=== PATIENT | female | born 1975 | race Caucasian/White ===

== ENCOUNTER → 2024-03-17 10:55 | Outpatient (REF) | payer OTHER, SELFPAY | LOC: WDC 10:55 | PROVIDERS: ATTENDING PHYSICIAN Family Medicine | DX: Z12.31 Encounter for screening mammogram for malignant neoplasm of breast (principal) | CPT/HCPCS: 77063; 77067 ==

== ENCOUNTER → 2024-06-09 06:23 | Day surgery (SDC) | payer OTHER, SELFPAY | LOC: GI 06:23 | PROVIDERS: ATTENDING PHYSICIAN Specialist; FAMILY PHYSICIAN Family Medicine | DX: Z12.11 Encounter for screening for malignant neoplasm of colon (principal); K63.5 Polyp of colon; K62.1 Rectal polyp | CPT/HCPCS: 45385; 45380; 88305 ==

== ENCOUNTER → 2024-08-30 06:40 | Outpatient (REF) | payer OTHER, SELFPAY | LOC: MRI 3T 06:40 | PROVIDERS: ATTENDING PHYSICIAN Family Medicine; FAMILY PHYSICIAN Family Medicine | DX: S83.289A Other tear of lateral meniscus, current injury, unspecified knee, initial encounter (principal) | CPT/HCPCS: 73721 ==

== ENCOUNTER → 2024-09-20 09:03 | Outpatient (REF) | payer OTHER, SELFPAY | LOC: WDC 09:03 | PROVIDERS: ATTENDING PHYSICIAN Student in an Organized Health Care Education/Training Program | DX: N64.4 Mastodynia (principal) | CPT/HCPCS: 76642; 77061; 77065 ==

== ENCOUNTER → 2024-09-29 09:42 | Outpatient (REF) | payer OTHER, SELFPAY | LOC: HWRAD 09:42 | PROVIDERS: ATTENDING PHYSICIAN Student in an Organized Health Care Education/Training Program; FAMILY PHYSICIAN Family Medicine | DX: N91.2 Amenorrhea, unspecified (principal) | CPT/HCPCS: 76830; 76856 ==

== ENCOUNTER 2024-11-16 08:22 | Emergency (ER) | payer OTHER, SELFPAY ==
[2024-11-16 08:23] VITALS: BP 164/81
[2024-11-16 08:35] VITALS: BMI 40.4
--- NOTE | 2024-11-16 08:48 | ED.GENMED ---
History of Present Illness
General
Chief Complaint: Back Pain
Source: patient
Exam Limitations: none
Time Seen by Provider: 11/16/24 08:34
History of Present Illness
History of Present Illness:
49yoF with a history of asthma, migraines, and obesity presenting for evaluation of back pain. Symptoms began 2 days ago with pain throughout her lower abdomen. Pain started to radiate to her hips and lower abdomen about a day later. She reports
significant spasms and is having difficulty sleeping due to her symptoms. Pain is worse with movement. She took Tylenol at symptom onset but has not been taking anything else because she was told to avoid NSAIDs due to an upcoming surgery in 4
days in which she is scheduled to have her breast implants removed. She states she wants to make sure it is nothing serious before her surgery. She is otherwise asymptomatic and denies any fevers, dysuria, bowel/bladder dysfunction, paresthesias,
weakness. No prior history of back problems. No history of IVDU or malignancy.
Past History
Past History
ED Past Medical History: None
ED Past Surgical History: Other (Breast augmentation)
Social History
Tobacco: Non-smoker
Alcohol: None
Drug: None
Living: with family
Phy Exam
Physical Exam
Physical Exam:
Appears uncomfortable due to pain, non-toxic
General Physical Exam
General Presentation: well appearing
General Skin: warm and dry
General Habitus: normal
General Mental: alert
ENT Exam
ENT Exam: normocephalic
Pulmonary Exam
Pulmonary Exam: no respiratory distress
Gastrointestinal Exam
Gastrointestinal Exam: soft, non distended and other (Mild tenderness in suprapubic region. Abdomen soft without rebound or guarding.)
Neurological Exam
Neurological Exam: alert
[place] Coma Scale
Eye Opening: Spontaneous
Verbal Response: Oriented
Motor Response: Obeys Commands
GCS Total Score: 15
Musculoskeletal Exam
Musculoskeletal Exam: other (+Tenderness in the bilateral paraspinal musculature in lumbar region. No midline spinous process tenderness. No step-offs.)
Skin Exam
Skin Exam: normal color and warm/dry
Psychiatric Exam
Psychiatric Exam: normal mood/affect
Course
Orders/Labs/Results
Orders:
Orders
11/16/24 08:47
CT Abd/pel Without Iv Or Oral Urgent
Comment:
Reason For Exam: b/l flank/back pain radiating to lower abdomen
Test Result ONCE
11/16/24 09:06
Complete Blood Count/With Diff Urgent
Comprehensive Metabolic Panel Urgent
HCG, Serum Qualitative Screen Urgent
Urinalysis Reflex To Culture Urgent
Date Specimen was Collected: 11/16/24
Time Specimen was Collected: 08:56
Urine Microscopic Reflex Cult Urgent
Abnormal Lab Results
11/16/24
09:06
RDW 14.6 H %
(11.5-14.5)
MPV 12.1 H fL
(7.4-10.4)
Glucose 101 H mg/dl
(70-99)
Ur Occult Blood Reflex 2+ A
(Negative)
Urine Bacteria (Reflex) Few A
(Negative)
11/16/24 09:06
11/16/24 09:06
Vital Signs
Initial and Last Documented VS:
Initial Vital Signs
Temp Pulse Resp BP Pulse Ox
98.0 F 81 16 164/81 99
11/16/24 08:23 11/16/24 08:23 11/16/24 08:23 11/16/24 08:23 11/16/24 08:23
Last Documented Vital Signs
Temp Pulse Resp BP Pulse Ox
98.0 F 75 16 121/65 99
11/16/24 08:23 11/16/24 10:00 11/16/24 10:00 11/16/24 10:00 11/16/24 08:23
MDM/Problems Addressed
Differential Diagnosis Includes:
49yoF here with low back pain x 2 days that is now radiating to the hips/lower abdomen. Worse with movement. No red flags in history including no fevers, saddle anesthesia, incontinence, hx of IVDU. She is hypertensive with otherwise normal vitals.
She is non-toxic appearing. There is tenderness to the paraspinal musculature in the lumbar region as well as suprapubic tenderness. Differential diagnosis includes but is not limited to: muscular spasm/strain, UTI, kidney stone, doubt fracture
Initial ED plan: Check CBC, CMP, HCG, UA, and CT abdomen without contrast to evaluate for stones. She declines analgesics.
*Critical Care Note
Total Time (30-74mins, 75-104mins- exclusive of procedures): Not Applicable
Update Note
Update Note:
Labs unremarkable including normal white count and renal function. No overt signs of infection on urinalysis. CT is negative for acute findings. Specifically, there is no ureterolithiasis or hydronephrosis seen. Appendix unremarkable. Presentation
consistent with muscular strain/spasm. Supportive care discussed. Unfortunately, patient unable to take NSAIDs due to her upcoming surgery. Offered prescription for muscle relaxant which she declines. Advised f/u with PCP and ED return precautions
discussed. Patient in agreement with plan and was discharged in stable condition.
ED Attending Note
-
Portions of this chart may have been created with voice recognition software.� Occasional wrong word or��sound alike� substitutions may have occurred due to the inherent limitations of voice recognition software.
Discharge Plan
Departure
Patient Disposition: Home (Routine Discharge)
Date of Disposition: 11/16/24
Time of Disposition: 10:37
Patient with high blood pressure during this ER visit?: No
Discharge Problem:
Acute bilateral low back pain
Instructions: Low Back Pain (DC)
Prescriptions:
No Action
ondansetron [Zofran ODT] 8 MG tablet,disintegrating
8 mg PO Q6HPRN PRN (Reason: n/v) Qty: 8 0RF
pantoprazole [Protonix] 20 MG tablet,delayed release (DR/EC)
20 mg PO BID Qty: 30 0RF
Referrals:
Fam Null, [Family Provider] -
Activity Restrictions/Additional Instructions:
Apply heat to affected area. Take Tylenol 650mg every 6 hours as needed for pain. Use lidocaine patches daily (12 hours on, 12 hours off). You may also try Voltaren gel.
Please follow-up with your family doctor. Return to the ER with any new or worsening symptoms.
Interventions
Interventions:
*Risk Screen - Suicide Last Done: 11/16/24 08:23
*Neglect/Abuse Screening Last Done: 11/16/24 08:23
*ED- Fall Risk Assessment Last Done: 11/16/24 08:36
*ED COVID-19 Vaccine History Last Done: 11/16/24 08:36
*Nursing Disposition Last Done: 11/16/24 11:13
ED-Musculoskeletal Assessment Last Done: 11/16/24 08:37
Discharge Date and Time
Discharge Date/Time: 11/16/24 11:15
Print Language: [id number]
[2024-11-16 09:17] LABS: Urine Albumin Negative (Neg - Trace); Urine Bilirubin Negative (Negative); Urine Character Clear (Clear); Urine Color Yellow; Urine Glucose Negative (Negative); Urine Ketone Negative (Negative); Urine Leukocyte Negative (Negative); Urine Nitrite Negative (Negative); Urine Occult Blood 2+ (Negative); Urine Urobilinogen Negative (Neg - 1+)
[2024-11-16 09:21] LABS: % Basophils 0.8 % (0-2); % Eosinophils 1.5 % (0-6); % Immature Granulocytes 0.2 % (0-0.5); % Lymphocytes 21.7 % (20.5-51.1); % Neutrophils 68.8 % (42.2-75.2); Absolute Basophils 0.1 10^3/uL (0-0.2); Absolute Eosinophils 0.1 10^3/uL (0-0.7); Absolute Lymphocytes 1.4 10^3/uL (1.2-3.4); Absolute Monocytes 0.5 10^3/uL (0.1-0.6); Absolute Neutrophils 4.5 10^3/uL (1.4-6.5); Hematocrit 41.5 % (37.0-47.0); Hemoglobin 13.8 g/dL (12.0-16.0); Mean Corp Hgb Conc. 33.3 g/dL (33.0-37.0); Mean Corpuscular Hgb 28.6 pg (27.0-31.0); Mean Corpuscular Volume 86.1 fL (81.0-99.0); Mean Platelet Volume 12.1 fL (7.4-10.4); Nucleated Red Blood Cells % 0 %; Platelet Count 201 10^3/uL (130-400); Red Blood Cell Count 4.82 10^6/uL (4.20-5.40); Red Cell Dist. Width 14.6 % (11.5-14.5); White Blood Cell Count 6.5 10^3/uL (4.8-10.8)
[2024-11-16 09:26] LABS: HCG, Serum Qualitative Screen Negative
[2024-11-16 09:28] LABS: ALT (SGPT) 21 U/L (0-35); AST (SGOT) 20 U/L (14-36); Albumin 4.3 g/dl (3.5-5.0); Alkaline Phosphatase 111 U/L (38-126); Blood Urea Nitrogen 12 mg/dl (7-17); Calcium 9.2 mg/dl (8.4-10.2); Carbon Dioxide 25 mmol/L (22-30); Chloride 105 mmol/L (98-107); Estimated Creatinine Clearance > 125 ml/min; Glucose 101 mg/dl (70-99); Potassium 4.3 mmol/L (3.5-5.1); Sodium 138 mmol/L (135-145); Total Bilirubin 0.4 mg/dl (0.2-1.3); eGFR > 60.00
[2024-11-16 09:32] LABS: Urine Squamous Cell 16-20 /LPF (Few); Urine Urothelial Cell 0-2 /LPF (FEW)
[2024-11-16 09:33] LABS: Urine Bacteria Few (Negative); Urine Red Blood Cell 0-2 /HPF (0-2)
[2024-11-16 10:00] VITALS: BP 121/65
== END 2024-11-16 11:15 | disposition home or self-care (01) ==
LOC: EMR 08:22
PROVIDERS: Physician Assistant; EMERGENCY PHYSICIAN Emergency Medicine; FAMILY PHYSICIAN Family Medicine
DX: M54.50 Low back pain, unspecified (principal); R10.30 Lower abdominal pain, unspecified; J45.909 Unspecified asthma, uncomplicated; Z98.82 Breast implant status
CPT/HCPCS: 99284; 74176; 80053; 81003; 81015; 84703; 85025

== ENCOUNTER → 2025-02-07 10:21 | Outpatient (REF) | payer OTHER, SELFPAY | LOC: HWRAD 10:21 | PROVIDERS: ATTENDING PHYSICIAN Student in an Organized Health Care Education/Training Program; FAMILY PHYSICIAN Family Medicine | DX: N83.209 Unspecified ovarian cyst, unspecified side (principal) | CPT/HCPCS: 76830; 76856 ==

== ENCOUNTER → 2025-03-23 13:31 | Outpatient (REF) | payer OTHER, SELFPAY | LOC: WDC 13:31 | PROVIDERS: ATTENDING PHYSICIAN Obstetrics & Gynecology; FAMILY PHYSICIAN Family Medicine; REFERRING PHYSICIAN Plastic Surgery | DX: Z12.31 Encounter for screening mammogram for malignant neoplasm of breast (principal) | CPT/HCPCS: 77063; 77067 ==

== ENCOUNTER → 2025-05-11 07:51 | Outpatient (REF) | payer OTHER, SELFPAY | LOC: HWRAD 07:51 | PROVIDERS: ATTENDING PHYSICIAN Student in an Organized Health Care Education/Training Program; FAMILY PHYSICIAN Family Medicine | DX: N83.209 Unspecified ovarian cyst, unspecified side (principal) | CPT/HCPCS: 76830; 76856 ==